=== PATIENT | female | born 1950 | race Caucasian/White ===

== ENCOUNTER → 2017-02-13 16:14 | Outpatient (CLI) | payer MEDICARE | END | disposition home or self-care (01) | LOC: D.MAMMO 11:00 | DX: Z12.31 Encounter for screening mammogram for malignant neoplasm of breast (principal) ==

== ENCOUNTER 2017-03-04 08:05 | Inpatient (IN) | payer MEDICARE ==
[~2017-03-04] VITALS: Ht 162.6 cm; Wt 144.7 kg
--- NOTE | ~2017-03-04 | HEMODYNAMI ---
PATIENT:LEONARD YATES MEDICAL RECORD: [id number] : 48 [id number] ADMISSION DATE: 03/04/17 Generatedon:03/06/201716:12 Patient name: LEONARD YATES Patient #: [id number] SSN: [id number] : 1950 Date of study: 03/06/2017 Page: Of Hemodynamic Procedure Report Patient Data Patient Demographics Procedure consent was obtained First Name: LEONARD Gender: Female Last Name: MILAN : 1950 Middle Initial: EVERETT Age: 66 year(s) Patient #: [id number] Race: SSN: [id number] Additional ID: [id number] Contact details [address]: [address] [place] [address] ROAD State: [place] City: [place] Zip code: [address] Admission Admission Data Admission Date: 03/04/2017 Admission Time: 10:10 Arrival Date: 03/04/2017 Arrival Time: 10:10 Admit Source: Other Insurance Payor: Medicare Room #: D.2232 Height (in.): 64 BSA: 2.42 (m2) Height (cm.): 162.56 BMI: 56.64 (kg/m2) Weight (lbs.): 330 Weight (kg.): 149.69 Lab Results Lab Result Date: 03/06/2017 Lab Result Time: 0:00 Biochemistry Name Units Result Min Max BUN mg/dl 30 --(----)-* 7 18 Creatinine mg/dl 1.5 --(----)-* 0.6 1.3 CBC Name Units Result Min Max Hemoglobin g/dl 12.8 -*(----)-- 13.5 17.5 Procedure Procedure Types Cath Procedure Diagnostic Procedure LHC LHC w/Coronaries Miscellaneous Procedures Moderate Sedation up to 30 minutes Procedure Description Procedure Date Procedure Date: 03/06/2017 Procedure Start Time: 16:00 Procedure End Time: 16:09 Procedure Staff Name Function Liam Ballard MD Performing Physician Clarice Quiros RN Nurse David Troncoso RT Monitor Haja Gee RT Scrub Renetta Baker RT Monitor Tabby Pereyra RT Monitor Elena Lawson RN Nurse Procedure Data Cath Procedure Fluoroscopy Diagnostic fluoroscopy Total fluoroscopy Time: 2 time: 2 min min Diagnostic fluoroscopy Total fluoroscopy dose: 744 dose: 744 mGy mGy Contrast Material Contrast Material Type Amount (ml) Isovue 370 96 Entry Location Entry Primary Successful Side Size Upsize Upsize Entry Closure Jackson ccessful Closure Location (Fr) 1 (Fr) 2 (Fr) Remarks Device Remarks Radial Right 6 Fr Mechanical artery Short Compression Estimated blood loss: 5 ml Diagnostic catheters Device Type Used For End Catheter Placement Terumo Optitorque 5Fr Multi-vessel Wyatt 4.5 catheter Angiography Diagnostic Infinity 5Fr Right Coronary AR 2 MOD catheter Angiography Procedure Complications No complications Procedure Medications Medication Administration Route Dosage Oxygen NC 2 l/min Heparin Flush Bag added to field 2 bags (1000units/500ml NS) Lidocaine 2% added to field 20 Radial Cocktail I.A. 1 syringe (Verapomil 2mg/Nitro 400mcg/Heparin 1500units) Versed I.V. 1 mg Fentanyl I.V. 50 mcg Versed I.V. 1 mg Fentanyl I.V. 50 mcg Versed I.V. 1 mg Fentanyl I.V. 50 mcg Hemodynamics Rest BSA: 2.42 (m2) HGB: 12.8 (g/dl) O2 Consumption: Estimated: 252.26 (ml/min) O2 Co nsumption indexed: Estimated:104.24 (ml/min/m) Heart Rate: 100 (bpm) Pressure Samples Time Site Value (mmHg) Purpose Heart Use Rate(bpm) 16:03 LV 116/-18,3 Snapshot 96 Snapshots Pre Cath Intra NCS Post Cath Vital Signs Time Heart Resp SPO2 NIBP (mmHg) Rhythm Pain Sedation Rate (ipm) (%) Status Level (bpm) 15:37:08 79 22 94 143/54(99) NSR 0 (11) 10(A) , No pain 15:41:49 91 22 93 145/75(113) NSR 0 (11) 10(A) , No pain 15:46:27 96 20 94 134/78(101) NSR 0 (11) 10(A) , No pain 15:51:08 78 15 94 118/62(85) NSR 0 (11) 10(A) , No pain 15:55:42 69 14 92 120/56(95) NSR 0 (11) 10(A) , No pain 16:00:21 82 16 93 120/51(98) NSR 0 (11) 10(A) , No pain 16:04:49 85 15 92 114/51(80) NSR 0 (11) 9(A) , No pain 16:09:15 91 15 94 110/59(88) NSR 0 (11) 10(A) , No pain Medications Time Medication Route Dose Verified Delivered Reason Notes Eff ectiveness by by 15:42:00 Oxygen NC 2 l/min Liam Clarice Per Nellie Quiros RN physician 15:42:08 Heparin Flush added 2 bags Liam Wheeler used for Bag to Nellie Ballard MD procedure (1000units/500ml field NS) 15:42:15 Lidocaine 2% added 20ml Liam Wheeler used for to vial Nellie Ballard MD procedure field 15:53:50 Versed I.V. 1 mg Liam Parker for Nellie Lawson RN sedation 15:53:55 Fentanyl I.V. 50 mcg Liam Parker for Nellie Lawson RN sedation 16:00:28 Versed I.V. 1 mg Liam Parker for Nellie Lawson RN sedation 16:00:32 Fentanyl I.V. 50 mcg Liam Parker for Nellie Lawson RN sedation 16:03:22 Radial Cocktail I.A. 1 Liam Wheeler used for (Verapomil syringe Nellie Ballard MD procedure 2mg/Nitro 400mcg/Heparin 1500units) 16:05:57 Versed I.V. 1 mg Liam Parker for Nellie Lawson RN sedation 16:06:01 Fentanyl I.V. 50 mcg Liam Parker for Nellie Lawson RN sedation Procedure Log Time Note 14:45:59 Haja Gee RT(R) sent for patient. Start room use. 14:55:00 Time tracking: Regular hours 14:55:04 Plan of Care:Hemodynamics will remain stable., Cardiac rhythm will remain stable., Comfort level will be maintained., Respiratory function will remain adequate., Patient/ family verbilizes understanding of procedure., Procedure tolerated without complication., Recovers from procedure without complications.. 15:15:02 Patient received from Med/Surg to CCL 2 Alert and oriented. Tansferred to table in Supine position. 15:35:12 Warm blankets applied, and wm hugger turned on for patient comfort. 15:35:12 Correct patient and procedure confirmed by team. 15:35:13 Signed procedure consent form obtained from patient. 15:35:14 ECG and BP/O2 sat monitors applied to patient. 15:35:14 Vital chart was started 15:35:23 Baseline sample Acquired. 15:35:28 Rhythm: sinus rhythm 15:35:29 Full Disclosure recording started 15:35:38 H&P Date Dictated: 03/05/2017 Within 30 days and on chart.. 15:35:41 Family in waiting room. 15:35:42 Patient NPO since Midnight. 15:35:43 Is the patient allergic to Iodine/contrast media? No. 15:37:01 IV Extension Set opened to sterile field. 15:37:08 Use device set Radial Dx 15:37:10 Tegaderm 4 x 4 opened to sterile field. 15:37:11 Acist Manifold opened to sterile field. 15:37:12 Acist Hand Control opened to sterile field. 15:37:13 Acist Syringe opened to sterile field. 15:37:13 Medline Cath Pack opened to sterile field. 15:37:14 Bag Decanter opened to sterile field. 15:37:14 Terumo 6Fr Slender Glidesheath opened to sterile field. 15:37:15 St Marcelino 260cm J .035 wire opened to sterile field. 15:37:15 MBrace Wrist Support opened to sterile field. 15:37:58 Patient not . Patient is over age 55. 15:38:27 Pre procedure: right dorsailis pedis pulse 1+ Palpable, but thready & weak; easily obliterated 15:38:29 Modified Segun's test Ulnar < 7 seconds 15:38:32 Patient pain scale 0/10 ?. 15:38:40 IV left hand D/C'd due to infiltration. 15:38:46 Lab results completed and on chart. 15:38:51 Pre-procedure instructions explained to patient. 15:38:51 Pre-op teaching completed and patient verbalized understanding. 15:42:00 Oxygen 2 l/min NC was administered by Clarice Quiros RN; Per physician; 15:42:08 Heparin Flush Bag (1000units/500ml NS) 2 bags added to field was administered by Liam Ballard MD; used for procedure; 15:42:15 Lidocaine 2% 20ml vial added to field was administered by Liam Ballard MD; used for procedure; 15:46:00 Is patient on blood thinner?No 15:46:01 Patient diabetic? No. 15:46:04 Previous problem with sedation/anesthesia? No ? 15:46:06 Snore? Yes 15:46:07 Sleep apnea? Yes 15:46:07 Deviated septum? No 15:46:08 Opens mouth fully? Yes 15:46:11 Sticks out tongue? Yes 15:46:13 Airway obstruction? No ? 15:46:15 Dentures? No ? 15:46:28 IV started by Clarice Quiros RN inRight upper arm with a 22 gauge IV catheter with 0.9% NaCl at KVO. 15:46:32 Right Radial & Right Groin area was prepped with chlora-prep and draped in sterile fashion 15:46:33 Alarms reviewed by R. N. 15:46:33 Sharps counted by scrub and verified by R.N. 15:50:44 Physician arrived 15:50:45 --------ALL STOP TIME OUT------ 15:50:45 Final Timeout: patient, procedure, and site verified with staff and physician. All members of the team are in agreement. 15:50:57 Right Radial & Right Groin site verified by team. 15:51:25 Physical assessment completed. ASA score P 2 - A patient with mild systemic disease as per Liam Ballard MD. 15:51:29 Sedation plan: IV Moderate Sedation Versed, Fentanyl 15:53:50 Versed 1 mg I.V. was administered by Elena Lawson RN; for sedation; 15:53:55 Fentanyl 50 mcg I.V. was administered by Elena Lawson RN; for sedation; 16:00:28 Versed 1 mg I.V. was administered by Elena Lawson RN; for sedation; 16:00:32 Fentanyl 50 mcg I.V. was administered by Elena Lawson RN; for sedation; 16:00:33 Procedure started. 16:00:47 Local anesthetic to right radial artery with Lidocaine 2% by Liam Ballard MD.INITIAL ACCESS ONLY 16:02:18 A 6 Fr Short sheath was inserted into the Right Radial artery 16:02:41 A Terumo Optitorque 5Fr Wyatt 4.5 catheter was advanced over the wire and used for Multi-vessel Angiography. 16:03:04 LV hemodynamics recorded. 16:03:06 LV gram done using DESIR 16:03:11 EF : 50 % 16:03:18 LCA angiography performed. 16:03:22 Radial Cocktail (Verapomil 2mg/Nitro 400mcg/Heparin 1500units) 1 syringe I.A. was administered by Liam Ballard MD; used for procedure; 16:03:36 Injector settings: Ml/sec: 3, Volume: 6, 16:05:04 Catheter removed. 16:05:44 A Diagnostic Infinity 5Fr AR 2 MOD catheter was advanced over the wire and used for Right Coronary Angiography. 16:05:57 Versed 1 mg I.V. was administered by Elena Lawson RN; for sedation; 16:06:01 Fentanyl 50 mcg I.V. was administered by Elena Lawson RN; for sedation; 16:06:17 RCA angiography performed. 16:06:20 Injector settings: Ml/sec: 3, Volume: 6, 16:06:33 Catheter removed. 16:07:07 Terumo TR Band Large opened to sterile field. 16:07:18 Sheath removed intact; hemostasis achieved with Mechanical Compression to the Right Radial artery. 16:07:19 Procedure ended.(Physican Out) 16:07:39 Fluoroscopy time 02.00 minutes. 16:07:48 Fluoroscopy dose: 744 mGy 16:07:48 Flurop Dose total: 744 16:07:52 Contrast amount:Isovue 370 96ml. 16:07:54 Sharps counted by scrub and verified by R.N. 16:07:57 TR band inflated with 10cc of air. 16:07:58 Insertion/operative site no bleeding no hematoma. 16:08:03 Post right radial artery:stable 16:08:04 Post Procedure Pulses reassessed and unchanged 16:08:07 Post procedure rhythm: unchanged. 16:08:10 Estimated blood loss: 5 ml 16:08:12 Post procedure instruction explained to patient.Patient verbalizes understanding. 16:08:12 Patient needs reinforcement of post procedure teaching. 16:08:25 Procedure type changed to Cath procedure, Diagnostic procedure, LHC, LHC w/Coronaries, Miscellaneous Procedures, Moderate Sedation up to 30 minutes 16:08:27 Procedure and supply charges have been captured, reviewed, submitted and are correct. 16:08:32 Procedure Complication : No complications 16:08:34 Vital chart was stopped 16:08:35 See physician's report for complete and final results. 16:08:59 Report given to [facility] II. 16:09:03 Patient transfered to Med II with Stretcher. 16:09:06 Procedure ended. 16:09:06 Full Disclosure recording stopped 16:09:09 End room use (Document Last) 16:10:11 Admit Source: Other 16:10:14 Arrival Date: 03/04/2017 10:10:00 AM 16:10:21 Insurance Payor : Medicare 16:10:58 Patient Height : 162.56 cm 16:11:13 Patient Weight : 149.69 kg 16:11:46 Lab Result : Hemoglobin 12.8 g/dl 16:11:46 Lab Result : Creatinine 1.5 mg/dl 16:11:46 Lab Result : BUN 30 mg/dl Device Usage Item Name Manufacture Quantity Catalog Hospital Part Current Minimal Lot# / Number Charge Number Stock Stock Serial# Code IV Hospira 1 21286-05 218792 69889 [id number] 5 Extension Set Tegaderm 4 3M 1 1626W [id number] 706172 504776 5 x 4 Acist Acist 1 54550 178435 148316 623147 5 Manifold Medical [employer] Inc Acist Hand Acist 1 50535 175109 881596 357062 5 Control Medical Systems Inc Acist Acist 1 53711 326210 837551 419709 20 Syringe Medical Systems Inc Medline Cardinal 1 [id number] 696342 79937 050988 5 Cath Pack Health Bag Microtek 1 2001S 751094 38378 716864 5 Decanter Medical Inc. Terumo 6Fr Terumo 1 [id number] 326294 194449 681357 [address] St Marcelino 1 066326 119003 463129 644894 30 260cm J .035 wire MBrace Advanced 1 [id number] 512390 60050 059935 5 Wrist Vascular Support Dynamics Terumo Terumo 1 40-2594 308726 536412 863497 5 Optitorque 5Fr Wyatt 4.5 catheter Diagnostic Cardinal 1 [id number] 988480 497061 152310 20 Infinity Health 5Fr AR 2 MOD catheter Terumo TR Terumo 1 [id number] 931337 521774 027150 40 Band Large Signature Audit Quebeck Stage Time Signature Unsigned Intra-Procedure 03/06/2017 Renetta Baker 4:11:59 PM RT(R) Signatures Monitor : David Troncoso RT Signature : Date : Time : Monitor : Renetta Baker RT Signature : Date : Time : Monitor : Tabby Pereyra Signature : RT Date : Time : [place] [address] [place] [address]
--- NOTE | ~2017-03-04 | EC ---
PATIENT:LEONARD YATES DATE OF SERVICE: 03/04/17 SEX: F MEDICAL RECORD: [id number] DATE OF : [birth year] LOCATION:D.MS [facility] AGE OF PATIENT: 66 ADMISSION DATE: 03/04/17 REFERRING PHYSICIAN: INTERPRETING PHYSICIAN: BRI MITCHELL M.D. ECHOCARDIOGRAM REPORT ECHO CHARGES 4 ECHO COMPLETE CLINICAL DIAGNOSIS: CHF ECHOCARDIOGRAPHIC MEASUREMENTS (adult normal given) AC root (d.<3.7cm) 3.6 LV Septum d (<1.2 cm> 1.5 Valve Excursion 1.7 LV Septum (systole) 2.0 Left Atria (s.<4.0cm> 5.0 LVPW d(<1.2cm) 1.5 RV (d.<2.3cm) 3.1 LVPW (sytole) 2.1 LV diastole(<5.6CM) 6.1 MV E-F(>70mm/sec) LV systole 3.6 LVOT Diameter 1.8 MV exc.(>10mm) Est.ejection fraction (50-75%) Pericardial Effusion N DOPPLER: LVIT A 74.0 E 108 LA RVSP 51.0 LVOT 137 AOP1/2T Asc. Ao 187 RVOT 82.0 RA PA 114 AV Gradient Peak 14.0 AV Mean 7.6 AV Area 2.0 MV Gradient Peak 6.4 MV Mean 2.2 MV Area COMMENTS: Cardiac Rehab Nurse: Rex EPPERSONOE Biztalk Architect:Mariana Mitchell TAPE# PACS DATE OF SERVICE: 03/04/2017 REFERRING PHYSICIAN: Morgan Hamilton DO. INDICATION: Congestive heart failure. DESCRIPTION: Left ventricle is mildly dilated. There is mild LV dysfunction noted. Estimated ejection fraction is in the order of 40%. Mitral valve is structurally normal. There is moderate regurgitation noted. Left atrium is moderately dilated. The aortic valve is trileaflet. There is no stenosis or ECHOCARDIOGRAM REPORT [id number] LEONARD YATES regurgitation seen. Right ventricle is mildly dilated. Tricuspid valve is structurally normal. There is moderate regurgitation seen. Right ventricular systolic pressure is elevated at 51 mmHg. There is no pericardial effusion seen. IMPRESSION: 1. Mildly dilated left ventricle with mild left ventricular dysfunction with ejection fraction of 40%. 2. Moderate mitral regurgitation. 3. Moderate tricuspid regurgitation with elevated pulmonary pressures. TRANSINT:[id number] Voice Confirmation ID: [id number] DOCUMENT ID: [id number] BRI MITCHELL M.D. CC: [id number] DICTATION DATE: 03/04/17 154 CREATIVE PRODUCER: 03/04/17 1556 ADM IN [facility] [address] [id number]
[2017-03-04 08:46] LABS: BASOPHILS 0.4 % (0-2); HEMATOCRIT 39.8 % (36.0-48.0); HEMOGLOBIN 12.5 g/dL (12-16); IMMATURE GRANULOCYTES 0.2 % (0-5); MCHC 31.4 g/dL (31.0-37.0); MCV 89.2 fL (80.0-100.0); MEAN PLATELET VOLUME 10.1 fL (7.4-10.4); MONOCYTES 6.6 % (2-11); NEUTROPHILS 85.8 % (40-80); PLATELET COUNT 208 10x3/uL (130-400); RBC 4.46 10x6/uL (4.00-5.40); RDW 14.6 % (11.5-14.5); WBC 12.4 10x3/uL (4.8-10.8)
[2017-03-04 08:58] LABS: ALBUMIN 3.4 g/dL (3.4-5.0); ANION GAP 11.6 mmol/L (8-16); BILIRUBIN - TOTAL 1.48 mg/dL (0.2-1.3); CALCIUM 8.9 mg/dL (8.5-10.1); CARBON DIOXIDE 26.6 mmol/L (21.0-32.0); CREATININE - SERUM 1.4 mg/dL (0.6-1.3); POTASSIUM - SERUM 4.2 mmol/L (3.5-5.1); PROTEIN - SERUM 7.3 g/dL (6.4-8.2)
[2017-03-04 11:00] VITALS: BP 114/63; BMI 10.6
--- NOTE | 2017-03-04 11:00 | NUR ---
RECEIVED PT FROM ER VIA WHEELCHAIR AT THIS TIME WITH FAMILY PRESENT. PT IS SOB ON 3L/NC AT THIS TIME. IV TO LEFT HAND PATENT AND INTACT AT THIS TIME. PT DENIES PAIN AT THIS TIME. SRX2 CALL LIGHT WITHIN REACH BED AT LOWEST SETTING WILL CONTINUE TO MONITOR
[2017-03-04] MEDS ORDERED: COREG25 MG PO (11:05)
[2017-03-04] MEDS ORDERED: DESERYL100 MG PO (11:05)
[2017-03-04] MEDS ORDERED: TIKOSYN250 MCG PO (11:06)
[2017-03-04] MEDS ORDERED: LISINOPRIL2.5 MG PO (11:06)
[2017-03-04] MEDS ORDERED: FUROSEMIDE20 MG PO (11:07)
[2017-03-04] MEDS ORDERED: ZOCOR40 MG PO (11:08)
[2017-03-04] MEDS ORDERED: CARTIA XT180 MG PO (11:08)
[2017-03-04] MEDS ORDERED: POTASSIUM CHLO10 ME1 PO (11:08)
[2017-03-04] MEDS ORDERED: LEVOTHYROXINE100 MCG PO (11:09)
[2017-03-04] MEDS ORDERED: CELEXA10 MG PO (11:09)
[2017-03-04] MEDS ORDERED: COUMADIN5 MG PO (11:09)
[2017-03-04] MEDS ORDERED: STOOL SOFTENER100 M1 PO (11:10)
[2017-03-04] MEDS ORDERED: COUMADIN2.5 MG PO (11:10)
[2017-03-04] MEDS ORDERED: PROBIOTIC1 EAC1 PO (11:11)
[2017-03-04 11:46] VITALS: BP 114/63
[2017-03-04 12:51] LABS: INR 2.46 (0.85-1.17); PROTIME 26.8 SECONDS (11.6-15.0)
--- NOTE | 2017-03-04 15:04 | NUR ---
DR BURLESON NOTIFIED OF PT IN RVR WITH HR 135-[address] BURLESON GIVEN TIKOSYN AND COREG PER PREVIOUS ORDER. AND MONITOR HR
[2017-03-04 15:37] VITALS: BP 142/65
[2017-03-04 19:00] VITALS: BP 158/57
[2017-03-04 21:02] LABS: CKMB 0.8 U/L (0.0-3.6); CREATINE KINASE 78 UL (21-215); TROPONIN-I 0.034 ng/mL (0.000-0.060)
[2017-03-05] VITALS (10 sets, daily range): BP systolic 105–169; BP diastolic 41–63; Ht 162.6 cm; Wt 144.7 kg
[2017-03-05 01:52] LABS: CKMB 0.5 U/L (0.0-3.6); CREATINE KINASE 77 UL (21-215); TROPONIN-I 0.018 ng/mL (0.000-0.060)
--- NOTE | 2017-03-05 02:15 | NUR ---
2024)REC'D. IN BED EYES CLOSED RESP. DEEP AND EVEN.WILL CONTINUE TO MONITOR FOR ANY CHGES AND FOLLOW CURRENT PLAN OF CARE.
--- NOTE | 2017-03-05 03:55 | NUR ---
RESTING WITH EYES CLOSED, NC IN PLACE, NO DISTRESS NOTED, SR'S UP, CL IN REACH
[2017-03-05 05:49] LABS: BASOPHILS 0.6 % (0-2); EOSINOPHILS 1.6 % (0-7); HEMATOCRIT 39.4 % (36.0-48.0); HEMOGLOBIN 12.3 g/dL (12-16); IMMATURE GRANULOCYTES 0.3 % (0-5); LYMPHOCYTES 21.1 % (15-50); MCH 27.8 pg (26.0-34.0); MCHC 31.2 g/dL (31.0-37.0); MCV 88.9 fL (80.0-100.0); MEAN PLATELET VOLUME 10.4 fL (7.4-10.4); MONOCYTES 14.2 % (2-11); NEUTROPHILS 62.2 % (40-80); PLATELET COUNT 218 10x3/uL (130-400); RBC 4.43 10x6/uL (4.00-5.40); RDW 14.5 % (11.5-14.5)
[2017-03-05 06:14] LABS: ALBUMIN 2.9 g/dL (3.4-5.0); ANION GAP 9.7 mmol/L (8-16); BILIRUBIN - TOTAL 1.57 mg/dL (0.2-1.3); CALCIUM 8.4 mg/dL (8.5-10.1); CARBON DIOXIDE 30.6 mmol/L (21.0-32.0); CREATININE - SERUM 1.4 mg/dL (0.6-1.3); PROTEIN - SERUM 6.7 g/dL (6.4-8.2)
[2017-03-05 06:16] LABS: POTASSIUM - SERUM 3.3 mmol/L (3.5-5.1)
--- NOTE | 2017-03-05 07:25 | NUR ---
SLEEPING AT THIS TIME WITH RESPIRATIONS EVEN AND NON LABORED. CALL LIGHT IN REACH, WILL CONTINUE WITH PLAN OF CARE.
[2017-03-05 07:34] LABS: CKMB 0.3 U/L (0.0-3.6); CREATINE KINASE 73 UL (21-215); TROPONIN-I 0.019 ng/mL (0.000-0.060)
--- NOTE | 2017-03-05 09:03 | NUR ---
SCHEDULED MEDICATIONS ADMINISTERED AT THIS TIME. LISINOPRIL HELD DUE TO DIASTOLIC PRESSURE BEING 43. TELEMETRY ON AND PT RUNNING 93 CONTROLLED A-FIB PER WASHING MACHINE LOADER. ASSESSMENT PERFORMED PER FLOWSHEET. PT AMBULATES AND POSITIONS INDEPENDENTLY. DENIES PAIN OR FURTHER NEEDS AT THIS TIME. BED IN LOWEST POSITION WITH SRX2 AND WHEELS LOCKED. CALL LIGHT IN REACH, WILL CONTINUE WITH PLAN OF CARE.
--- NOTE | 2017-03-05 10:30 | NUR ---
DISCONNECTED FROM IV AT THIS TIME FOR SHOWER. NOTIFIED NICHOLAS AT MONITOR STATION THAT PT WAS IN THE SHOWER.
--- NOTE | 2017-03-05 11:10 | NUR ---
SPOKE WITH RIGOBERTO PETERSON TECH AT THIS TIME. SHE STATED THAT PT'S CONDUCTION HAS CHANGED AND HAS A WIDENED QRS. RATE IS 63 CONTROLLED A-FIB. NOTIFIED АЛЕКСАНДР SALCIDO AND DR BROWNE. NEW ORDERS GIVEN AND EKG TO OBTAINED AND TO NOTIFY DR BURLESON.
--- NOTE | 2017-03-05 12:00 | NUR ---
DR BURLESON ON THE FLOOR. SHOWED HIM THE EKG AND RELAYED THE INFORMATION REGARDING CONDUCTION CHANGES AND HE STATED THAT SHE IS STABLE AND WE WILL CONTINUE TO MONITOR HER.
--- NOTE | 2017-03-05 12:25 | NUR ---
BLOOD CONSENT SIGNED FOR ORDERED PLASMA AT THIS TIME. DENIES QUESTIONS. SPOKE WITH DR BURLESON REGARDING PROCEDURE TOMORROW AND SHE DENIES QUESTIONS OR CONCERNS RELATED TO PROCEDURE.
--- NOTE | 2017-03-05 15:30 | NUR ---
FIRST OF TWO FFP INITIATED AFTER BEING WITNESSED AT THIS TIME. INITIATED AT 999 ML/HR AND REMAINING IN ROOM WITH PT FOR DURTAION OF TRANSFUSION. SEE VITAL SIGN FLOWSHEET.
--- NOTE | 2017-03-05 15:40 | NUR ---
VITAL SIGNS REMAIN STABLE AT THIS TIME. PT IS NOT EXPERIENCING ANY SHORTNESS OF BREATH OR DYSPNEA. REMAINING IN ROOM FOR TRANSFUSION.
--- NOTE | 2017-03-05 15:50 | NUR ---
TRANSFUSION OF FIRST FFP COMPLETE AT THIS TIME. VITAL SIGNS REMAIN STABLE. IV FLUSHED WITH 10ML OF SALINE FLUSH AND PT GIVEN 20MG OF LASIX IV AT THIS TIME PER ORDER. FLUSHED WITH 10 ML OF SALINE FLUSH. WILL ADMINISTER REMAINING 20 MG OF LASIX PER ORDER POST SECOND UNIT OF FFP COMPLETION. PT RESPIRATIONS REMAIN EVEN AND NON LABORED AND VITAL SIGNS STABLE.
--- NOTE | 2017-03-05 15:55 | NUR ---
SECOND UNIT OF FFP INITIATED AT THIS TIME. VITAL SIGNS REMAIN STABLE. SEE VITAL SIGN FLOW SHEET. REMAINING IN ROOM WITH PT.
--- NOTE | 2017-03-05 16:10 | NUR ---
VITAL SIGNS REMAIN STABLE. SECOND UNIT OF FFP INFUSING AT 750 ML/HR. ASSISTED PT UP TO BATHROOM WHERE SHE VOIDED WITHOUT DIFFICULTY. DISPLAYS NO S/S OF DYSPNEA OF SOB. REMAINING IN ROOM WITH PT FOR TRANSFUSION.
--- NOTE | 2017-03-05 16:15 | NUR ---
SECOND UNIT OF FFP COMPLETE AT THIS TIME. WILL CONTINUE TO MONITOR VITAL SIGNS. REMAINING 20 OF LASIX ADMINISTERED PER ORDER AT THIS TIME.
--- NOTE | 2017-03-05 17:04 | NUR ---
SCHEDULED COREG ADMINISTERED AT THIS TIME. BLOOD PRESSURE WNL AND HEART RATE 90 PER ADVOCACY DIRECTOR.
[2017-03-06 04:00] VITALS: BP 100/67
--- NOTE | 2017-03-06 06:16 | NUR ---
0100) 3RD UNIT PLASMA GIVEN WITHOUT DIFFICULTY RAMAKRISHNA. WELL.
--- NOTE | 2017-03-06 06:19 | NUR ---
DEVELOPMENT ENGINEER ASSISTING WITH BATH PRIOR TO PROCEDURE. REFUSES GROINS TO BE CLIPPED STATES SHE WAS TOLD PROCEDURE WOULD BE DONE THRU WRIST. ORDERS STATES GROIN.
[2017-03-06 06:23] LABS: BASOPHILS 0.6 % (0-2); EOSINOPHILS 2.6 % (0-7); HEMATOCRIT 40.3 % (36.0-48.0); HEMOGLOBIN 12.8 g/dL (12-16); IMMATURE GRANULOCYTES 0.3 % (0-5); LYMPHOCYTES 18.4 % (15-50); MCH 28.1 pg (26.0-34.0); MCHC 31.8 g/dL (31.0-37.0); MCV 88.4 fL (80.0-100.0); MEAN PLATELET VOLUME 10.5 fL (7.4-10.4); MONOCYTES 9.6 % (2-11); NEUTROPHILS 68.5 % (40-80); PLATELET COUNT 239 10x3/uL (130-400); RBC 4.56 10x6/uL (4.00-5.40); RDW 14.3 % (11.5-14.5); WBC 10.6 10x3/uL (4.8-10.8)
[2017-03-06 07:10] LABS: ALBUMIN 3.5 g/dL (3.4-5.0); ANION GAP 15.5 mmol/L (8-16); BILIRUBIN - TOTAL 1.6 mg/dL (0.2-1.3); CALCIUM 8.7 mg/dL (8.5-10.1); CARBON DIOXIDE 30.1 mmol/L (21.0-32.0); CREATININE - SERUM 1.5 mg/dL (0.6-1.3); INR 1.44 (0.85-1.17); PROTIME 17.4 SECONDS (11.6-15.0)
[2017-03-06 07:18] LABS: POTASSIUM - SERUM 3.6 mmol/L (3.5-5.1)
--- NOTE | 2017-03-06 07:56 | CN ---
PATIENT NAME:LEONARD YATES MEDICAL RECORD: [id number] : 48 LOCATION:D.MS [facility]32 ADMIT DATE: 03/04/17 ACCOUNT: [id number] CONSULTING PHYSICIAN: MARIA INES BURLESON MD REFERRING PHYSICIAN: QUITA BROWNE DO DATE OF CONSULTATION: 03/04/2017 Cardiology Consultation DIAGNOSES: 1. Shortness of breath, dyspnea on exertion. 2. Pulmonary edema. 3. Paroxysmal atrial fibrillation. 4. Aortic insufficiency -- valvular heart disease. 5. Hypertension. HISTORY OF PRESENT ILLNESS: Mrs. Yates presents with increasing shortness of breath, dyspnea on exertion. She does have pulmonary edema on her chest x-ray. She feels much better after 1 dose of IV Lasix. She has had a good urine output. She has been told in the past that she has congestive heart failure; however, recent echo showed ejection fraction 55%. No diastolic dysfunction and only mild aortic insufficiency, normal pulmonary pressures. With that, she would not have heart failure. She has not had any chest pain or chest discomfort. She does have a family history of coronary artery disease as well as hypertension and hyperlipidemia. She has not had workup for ischemic heart disease. PHYSICAL EXAMINATION: GENERAL APPEARANCE: Well-nourished, well-developed, appears stated age. Level of distress, comfortable. PSYCHIATRIC: Mental status, alert, normal affect. Orientation, oriented to time, place and person. EYES: Lids and conjunctiva, noninjected. No discharge, no pallor. ENT: Lips, teeth, gums, normal dentition. Oropharynx, no cyanosis, no pallor. NECK: Carotid arteries, bilateral normal upstroke, no bruits, no thrills. JUGULAR VEINS: No jugular venous pressure or distention. CERVICAL LYMPH NODES: Nontender, nonenlarged. THYROID: Not enlarged. Nontender. No nodules. LUNGS: Respiratory effort, unlabored. CHEST: Normal curvature. No thoracic deformity. No chest wall tenderness. Percussion, resonant. Auscultation, clear. No wheezes, no rales, no rhonchi. CARDIOVASCULAR: Precordial exam, nondisplaced. No heaves or pericardial thrills. Rate and rhythm, regular. Heart sounds, normal S1, normal S2. No S3, no gallop, no rub. Systolic murmur, not heard. Diastolic murmur, not heard. EXTREMITIES: No cyanosis, no edema. Peripheral pulses, full and equal in all extremities, except as noted. No bruits appreciated. ABDOMEN: Soft, nondistended. Normal aorta. No bruit. Nontender. No masses. Liver, nontender, no hepatomegaly. Spleen, nontender, no splenomegaly. MUSCULOSKELETAL: No joint tenderness. No joint swelling. No erythema. NEUROLOGICAL: Normal gait, normal strength, normal tone. SKIN: Warm and dry. REVIEW OF SYSTEMS: The patient reports easy bruising but reports no swollen glands. The patient reports no fever, no night sweats, no significant weight gain, no significant weight loss. No significant exercise tolerance. The CONSULT REPORT [id number] LEONARD YATES patient reports no dry eyes, no irritation, no vision change. Patient reports no difficulty hearing and no ear pain. Patient reports no frequent nose bleeds or nose and sinus problems. Patient reports on arm pain on exertion. No shortness of breath while lying down. No history of heart murmur. Patient reports no cough, no wheezing or coughing up blood. Patient reports no abdominal pain, no vomiting. Normal appetite. No diarrhea and not vomiting blood. No nausea and no constipation. Patient reports no incontinence. No difficulty urinating. No hematuria. No increased frequency. Patient reports no muscle aches. No weakness, no arthralgias, no back pain. No swelling of the extremities. Patient reports no abnormal mole, no jaundice, no rashes. Reports no loss of consciousness. No weakness and no numbness. No seizures, dizziness, or headaches. The patient reports no depression, no sleep disturbance, feeling safe in a relationship and no alcohol abuse. Patient reports on fatigue. Reports no runny nose or sinus pressure. No itching, no hives, and no frequent sneezing. OVERALL IMPRESSIONS: Pulmonary edema. Technically this is not heart failure with a normal ejection fraction, no significant valvular heart disease. It is unknown etiology, but she keeps having episodes of pulmonary edema and shortness of breath. This very well may be an anginal equivalent. She is on Coumadin. We will definitely hold her Coumadin at this point and get a PT and INR. She would benefit from cardiac catheterization in the near future. Further care depends upon findings of the catheterization. TRANSINT:[id number] Voice Confirmation ID: [id number] DOCUMENT ID: [id number] MARIA INES BURLESON MD at 0756 CC: [id number] DICTATION DATE: 03/04/17 1210 SLURRY BLENDER: 03/04/17 1626 ADM IN [facility] [address] [id number]
[2017-03-06 08:14] VITALS: BP 140/58
--- NOTE | 2017-03-06 10:09 | NUR ---
Contacted supervisor laboratory to inquire about administration of po medications prior to heart cath. Audie Dominique can go ahead and administer routine medications.
--- NOTE | 2017-03-06 10:26 | NUR ---
Received thi am alert and oriented times four, reports no pain. Telemetry in place CAF HR 74. O2 in place at 2lpm, respirations easy. No distress assessed. Educated on continuation nof NPO except ok for her to have medications per medical laboratory scientist. Procedure is still scheduled fortoday with unknown time, will call for pre op. Eduacted patient on this. Verbalized understanding. Call light within reach.
--- NOTE | 2017-03-06 10:37 | NUR ---
03/06/2017 10:31 DCP: Discharge Planning Patient Name: LEONARD YATES Admission Status: ER Accout number: [id number] Admission Date: 03-04-2017 : 1950 Admission Diagnosis:HEART FAILURE, UNSPECIFIED Attending: LESLYE Current LOS: 2 Anticipated DC Date: 03-08-2017 Planned Disposition: Home Primary Insurance: MEDICARE A & B Discharge Planning Comments: CM MET WITH PT TO ASSESS DISCHARGE PLANNING NEEDS. PT PLANS TO DISCHARGE TO HOME TO DAUGHTERS HOUSE URIEL JOHNSON ([phone]) WHO WILL DRIVE HER HOME. STATE HOME IS SAFE TO RETURN . PT USES CPAP MACHINE. ([place] PATIENT) HAS A WALKER, WHEELCHAIR, AND CANE. DENIES ANY HOME HEALTH NEEDS. WISAM RYAN USES THE [facility] ON [address], CM WILL CONTINUE TO FOLLOW AND ASSIST NEEDED WITH DISCHARGE PLANNING / NEEDS JIMMIE EVANGELISTA RN * Is the patient Alert and Oriented? Yes 0 * How many steps to enter\exit or inside your home? 0 0 * PCP [facility] 0 * Pharmacy [facility] ON [address] 0 * Preadmission Environment Home with Family 0 * ADLs Independent 0 * Equipment Cane CPAP Walker Wheelchair 0 * List name and contact numbers for known caregivers / representatives who currently or will assist patient after discharge: URIEL JOHNSON [phone] * Community resources currently utilized None 0 * Additional services required to return to the preadmission environment? No 0 * Can the patient safely return to the preadmission environment? Yes 0 * Has this patient been hospitalized within the prior 30 days at any hospital? No
[2017-03-06 11:50] VITALS: BP 132/50
--- NOTE | 2017-03-06 14:09 | NUR ---
Awake with no complaints, remains NPO, has not been for procedure yet. No distress assessed. Call light within reach.
--- NOTE | 2017-03-06 15:00 | NUR ---
RECEIVED CALL TO GO AHEAD AND PRE OP PATIENT
--- NOTE | 2017-03-06 15:04 | NUR ---
CURRENTLY GIVING PATIENT HER PRE OP, TRANSPORTATION HERE, STATES TO JUST HOLD OFF ON NITRO OINTMENT TO WRIST, PER RORY
--- NOTE | 2017-03-06 15:15 | NUR ---
transported to medical laboratory technician
--- NOTE | 2017-03-06 16:32 | NUR ---
RECIEVED FROM AIRFLIGHT ATTENDANTS SUPERVISOR. VS WNL. RIGHT WRIST STABLE WITH TR BAND INTACT. WILL MONITOR.
--- NOTE | 2017-03-06 19:58 | NUR ---
RESUMED CARE OF PT, LYING IN BED RESPIRATIONS EVEN AND UNLABORED ON 3LPM VIA NC. 75 CAF ON TELEMETRY. LEFT HAND INFUSING NS @ KVO. RIGHT WRIST TR BAND INFLATED. CALL LIGHT IN REACH. WILL CONTINUE TO MONITOR. SEE NURSE ASSESSMENT.
[2017-03-06 20:00] VITALS: BP 111/34
--- NOTE | 2017-03-06 20:09 | NUR ---
5CC REMOVED FROM TR BAND
[2017-03-07] VITALS: BP 135/55
[2017-03-07 04:00] VITALS: BP 128/56
[2017-03-07 05:45] LABS: BASOPHILS 0.5 % (0-2); HEMATOCRIT 39.9 % (36.0-48.0); HEMOGLOBIN 12.8 g/dL (12-16); IMMATURE GRANULOCYTES 0.3 % (0-5); LYMPHOCYTES 29.3 % (15-50); MCH 28.4 pg (26.0-34.0); MCHC 32.1 g/dL (31.0-37.0); MCV 88.7 fL (80.0-100.0); MONOCYTES 9.5 % (2-11); NEUTROPHILS 55.4 % (40-80); PLATELET COUNT 242 10x3/uL (130-400); RDW 14.3 % (11.5-14.5); WBC 9.4 10x3/uL (4.8-10.8)
[2017-03-07 06:09] LABS: ALBUMIN 3.2 g/dL (3.4-5.0); ANION GAP 11.6 mmol/L (8-16); BILIRUBIN - TOTAL 1.15 mg/dL (0.2-1.3); CALCIUM 8.8 mg/dL (8.5-10.1); CARBON DIOXIDE 30.8 mmol/L (21.0-32.0); CREATININE - SERUM 1.6 mg/dL (0.6-1.3); POTASSIUM - SERUM 3.4 mmol/L (3.5-5.1); PROTEIN - SERUM 7.2 g/dL (6.4-8.2)
[2017-03-07 08:45] VITALS: BP 130/34
--- NOTE | 2017-03-07 09:47 | NUR ---
TELEMETRY CAF.HR 67. CALL LIGHT IN REACH. WILL MONITOR NEEDS.
--- NOTE | 2017-03-07 10:47 | NUR ---
Patient Name: LEONARD YATES Encounter No: [id number] : 1950 Primary Insurance: MEDICARE A & B Anticipated DC Date: 03-07-2017 Planned Disposition: Home DCP follow-up note: CM MET WITH PT IN ROOM TO DISCUSS DISCHARGE NEEDS AND PLANNING. CM DISCUSSED AVAILABILITY OF HOME HEALTH, REHAB SERVICES AND MEDICAL EQUIPMENT. PT DENIES DISCHARGE NEEDS. DAUGHTER TO TRANSPORT HOME AT DISCHARGE TODAY. IMPORTANT MESSAGE FROM MEDICARE PROVIDED AND EXPLAINED. Uriel Mcnamara, CASE MANAGEMENT
[2017-03-07 11:57] VITALS: BP 110/47
--- NOTE | 2017-03-07 13:46 | NUR ---
IV AND TELEMETRY DCD. DC PLANS GIVEN. UNDERSTANDING VOICED.
--- NOTE | 2017-03-07 14:09 | NUR ---
ESCORTED TO CAR BY W/C.
--- NOTE | 2017-03-12 18:07 | DS ---
PATIENT:LEONARD YATES :[birth year] MEDICAL RECORD: [id number] DISCHARGE SUMMARY ADMISSION DATE: 03/04/17 DISCHARGE DATE: 03/07/17 DIAGNOSES: 1. Pulmonary edema secondary to atrial fibrillation. 2. Atrial fibrillation, paroxysmal. HISTORY OF PRESENT ILLNESS: Mrs. Yates has recurrent episodes of pulmonary edema. She does not have congestive heart failure. She has a normal left ventricular systolic function, no significant valvular disease, but she does have paroxysmal atrial fibrillation and that is what is putting her in to the pulmonary edema. She was seen previously by Dr. Alonzo. She was started on Tikosyn for this. She has not been on any other antiarrhythmics, we discontinued the Tikosyn, gave her rate control with Cardizem and carvedilol. We will let the Tikosyn get out of her system and see her back next week to institute antiarrhythmic therapy with sotalol. Also, make her appointment with Dr. Mcfadden in [place] to evaluate for atrial fibrillation ablation. TRANSINT:[id number] Voice Confirmation ID: [id number] DOCUMENT ID: [id number] MARIA INES BURLESON MD at 1807 CC: [id number] DICTATION DATE: 03/07/17 0846 BUFFET MANAGER: 03/08/17 0201 DIS IN 03/07/17 [id number] [place] [address]
--- NOTE | 2017-03-12 18:07 | OP ---
PATIENT NAME: LEONARD YATES MEDICAL RECORD: [id number] :[birth year] LOCATION:D.M2 D.2121 ADMISSION DATE:03/04/17 SURGEON: MARIA INES BURLESON MD DATE OF OPERATION: 03/06/2017 PROCEDURES: 1. Left heart catheterization. 2. Selective coronary angiography. 3. Left ventriculogram. INDICATIONS: Atrial fibrillation and angina. PROCEDURE IN DETAIL: After informed consent was obtained and after detailed explanation of risks, benefits, as well as alternative therapies, the patient elected to proceed with angiogram and heart catheterization. The right radial area was prepped and draped in normal sterile fashion. The right radial artery was cannulated via modified Seldinger technique with placement of 6-Comoran sheath. All catheters exchanged through this sheath. FINDINGS: The left ventriculogram was performed in standard 30-degree DESIR view reveals good cardiac wall motion throughout all segments. Overall ejection fraction is 60%. SELECTIVE CORONARY ANGIOGRAPHY: Left main, left anterior descending, left circumflex and right coronary artery are all Left main, left anterior descending, left circumflex, right coronary smooth-walled vessels with no angiographic evidence of coronary artery disease. OVERALL IMPRESSION: 1. No angiographic evidence of coronary artery disease. 2. Normal left heart pressures. 3. Normal left ventricular systolic function. Her symptomatology is secondary to the dysrhythmia. Center medical management on treatment of the dysrythmia. TRANSINT:[id number] Voice Confirmation ID: [id number] DOCUMENT ID: [id number] MARIA INES BURLESON MD at 1807 CC: [id number] DICTATION DATE: 03/06/17 1613 WATER TRUCK DRIVER: 03/06/17 2314 DIS IN 03/07/17 [facility] [address] [place] [address]
== END 2017-03-07 14:10 | disposition home or self-care (01) | DRG 287 ==
LOC: D.ER 08:05 → D.MS 10:10 → D.M2 03-06 16:27
PROVIDERS: Emergency Medicine; Internal Medicine Interventional Cardiology; ADMIT Family Medicine
PROC: B2151ZZ Fluoroscopy of Left Heart using Low Osmolar Contrast (ICD-10-PCS; 2017-03-06)
PROC: 4A023N7 Measurement of Cardiac Sampling and Pressure, Left Heart, Percutaneous Approach (ICD-10-PCS; 2017-03-06)
PROC: B2111ZZ Fluoroscopy of Multiple Coronary Arteries using Low Osmolar Contrast (ICD-10-PCS; principal; 2017-03-06 10:00)
DX: I48.0 Paroxysmal atrial fibrillation (principal); N17.9 Acute kidney failure, unspecified; I35.1 Nonrheumatic aortic (valve) insufficiency; F32.9 Major depressive disorder, single episode, unspecified; I10 Essential (primary) hypertension; Z79.01 Long term (current) use of anticoagulants; Z95.0 Presence of cardiac pacemaker; Z86.73 Personal history of transient ischemic attack (TIA), and cerebral infarction without residual deficits; Z82.49 Family history of ischemic heart disease and other diseases of the circulatory system

== ENCOUNTER 2018-11-17 08:00 | Outpatient (CLI) | payer MEDICARE ==
[2017-03-05 13:29] VITALS: BMI 56.6
[~2018-11-17 08:00] MED LIST: CARTIA XT180 MG PO; CELEXA10 MG PO; COREG25 MG PO; COUMADIN2.5 MG PO; COUMADIN5 MG PO; DESERYL100 MG PO; FUROSEMIDE20 MG PO; LEVOTHYROXINE100 MCG PO; LISINOPRIL2.5 MG PO; POTASSIUM CHLO10 ME1 PO; PROBIOTIC1 EAC1 PO; STOOL SOFTENER100 M1 PO; TIKOSYN250 MCG PO; ZOCOR40 MG PO
== END 2018-11-17 09:00 | disposition home or self-care (01) ==
LOC: D.MAMMO 08:00
DX: Z12.31 Encounter for screening mammogram for malignant neoplasm of breast (principal)

== ENCOUNTER → 2019-03-17 16:17 | Outpatient (CLI) | payer MEDICARE ==
[2017-03-05 13:29] VITALS: BMI 56.6
[~2019-03-17 16:17] MED LIST changes: +ALDACTONE25 MG PO; +INDOCIN25 MG PO
[2019-03-17 19:12] LABS: MACROPHAGES BF 2 %; MESOTHELIALS BF 1 %; NEUT - BF 93 %
== END | disposition home or self-care (01) ==
LOC: D.LABREF 16:17
PROVIDERS: ATTEND Orthopaedic Surgery
DX: L03.116 Cellulitis of left lower limb (principal)

== ENCOUNTER → 2019-03-17 16:31 | Outpatient (CLI) | payer MEDICARE ==
[2017-03-05 13:29] VITALS: BMI 56.6
== END | disposition home or self-care (01) ==
LOC: D.US 16:30
PROVIDERS: ATTEND Orthopaedic Surgery
DX: R60.0 Localized edema (principal)

== ENCOUNTER 2019-03-21 13:23 | Emergency (ER) | payer MEDICARE ==
[~2019-03-21 13:23] MED LIST changes: -ALDACTONE25 MG PO; -INDOCIN25 MG PO
[2019-03-21 13:35] VITALS: BMI 55.0
[2019-03-21] MEDS ORDERED: INDOCIN25 MG PO (13:38)
[2019-03-21] MEDS ORDERED: ALDACTONE25 MG PO (13:39)
[2019-03-21 14:32] LABS: BASOPHILS 0.4 % (0-2); EOSINOPHILS 1.3 % (0-7); HEMATOCRIT 28.3 % (36.0-48.0); IMMATURE GRANULOCYTES 2.8 % (0-5); MCH 27.6 pg (26.0-34.0); MCHC 31.8 g/dL (31.0-37.0); MCV 86.8 fL (80.0-100.0); MEAN PLATELET VOLUME 8.8 fL (7.4-10.4); MONOCYTES 7.2 % (2-11); NEUTROPHILS 80.3 % (40-80); RBC 3.26 10x6/uL (4.00-5.40); RDW 15.1 % (11.5-14.5); WBC 15.9 10x3/uL (4.8-10.8)
[2019-03-21 14:33] LABS: PLATELET COUNT 417 10x3/uL (130-400)
[2019-03-21 14:46] LABS: ALBUMIN 2.9 g/dL (3.4-5.0); ALKALINE PHOSPHATASE 147 U/L (46-116); ALT (SGPT) 24 U/L (10-68); BILIRUBIN - TOTAL 1.72 mg/dL (0.2-1.3); CALC OSMOLALITY 302 mosm/kg (275-300); CHLORIDE - SERUM 106 mmol/L (98-107); CREATININE - SERUM 1.7 mg/dL (0.6-1.3); GLUCOSE 130 mg/dL (74-106); POTASSIUM - SERUM 5.4 mmol/L (3.5-5.1); PROTEIN - SERUM 7.4 g/dL (6.4-8.2); SODIUM 139 mmol/L (136-145); UREA NITROGEN 77 mg/dL (7-18); eGFR NON AFRICAN AMERICAN 32 mL/min (90-120)
[2019-03-21 14:47] LABS: AMYLASE - SERUM 29 U/L (25-115); LIPASE 168 U/L (73-393); TROPONIN-I < 0.017 ng/mL (0.000-0.060)
[2019-03-21 15:32] LABS: APPEARANCE CLEAR (CLEAR); BILIRUBIN NEGATIVE (NEGATIVE); COLOR STRAW (YELLOW); GLUCOSE NEGATIVE (NEGATIVE); KETONE NEGATIVE (NEGATIVE); NITRITE NEGATIVE (NEGATIVE); PROTEIN NEGATIVE (NEGATIVE); UROBILINOGEN NORMAL (NORMAL)
[2019-03-21 15:58] LABS: INR 4.5 (0.85-1.17); PROTIME 41.9 SECONDS (11.6-15.0)
[2019-03-21 15:59] LABS: APTT 99.7 SECONDS (22.8-39.4)
[2019-03-21 20:24] LABS: BASOPHILS 0.4 % (0-2); EOSINOPHILS 1.3 % (0-7); HEMOGLOBIN 9.1 g/dL (12-16); IMMATURE GRANULOCYTES 2.8 % (0-5); LYMPHOCYTES 9.8 % (15-50); MCH 27.5 pg (26.0-34.0); MCHC 31.4 g/dL (31.0-37.0); MCV 87.6 fL (80.0-100.0); MEAN PLATELET VOLUME 8.8 fL (7.4-10.4); MONOCYTES 10.4 % (2-11); NEUTROPHILS 75.3 % (40-80); PLATELET COUNT 440 10x3/uL (130-400); RBC 3.31 10x6/uL (4.00-5.40); RDW 15.3 % (11.5-14.5); WBC 16.6 10x3/uL (4.8-10.8)
[2019-03-21 22:10] VITALS: BP 136/55
== END 2019-03-21 22:00 | disposition other institution (70) ==
LOC: D.ER 13:23
PROVIDERS: Family Medicine
DX: D64.9 Anemia, unspecified (principal); I48.91 Unspecified atrial fibrillation; Z79.01 Long term (current) use of anticoagulants; N28.9 Disorder of kidney and ureter, unspecified; K92.2 Gastrointestinal hemorrhage, unspecified

== ENCOUNTER → 2019-03-26 12:29 | Outpatient (CLI) | payer MEDICARE ==
[2019-03-21 13:35] VITALS: BMI 55.0
--- NOTE | ~2019-03-26 | HEMODYNAMI ---
PATIENT:LEONARD YATES MEDICAL RECORD: [id number] : [birth year] LOCATION:[facility] ADMISSION DATE: 03/26/19 Generatedon:03/26/201914:11 Patient name: LEONARD YATES Patient #: [id number] SSN: [id number] : 1950 Date of study: 03/26/2019 Page: Of Hemodynamic Procedure Report Patient Data Patient Demographics Procedure consent was obtained First Name: LEONARD Gender: Female Last Name: MILAN : 1950 Middle Initial: [place] Age: 68 year(s) Patient #: [id number] Race: SSN: [id number] Additional ID: [id number] Contact details [address]: [address] [place] [address] ROAD State: [place] City: [place] Zip code: [address] Past Medical History Allergies: No known allergies Admission Admission Data Admission Date: 03/26/2019 Admission Time: 12:29 Procedure Procedure Types Cath Procedure Peripheral Cath Diagnostic Procedure Miscellaneous Aspiration/Injection (Joint) Procedure Description Procedure Date Procedure Date: 03/26/2019 Procedure Start Time: 13:41 Procedure Staff Name Function Radha Munoz MD Performing Physician Rosa Isela RDZ Scrub Hemodynamics Rest Pre Cath Intra NCS Post Cath Procedure Log Time Note 13:36:17 Rosa Isela RDZ(R) sent for patient. Start room use. 13:36:18 Time tracking: Regular hours (M-F 7:00 - 5:00) 13:36:29 Patient received from Outpatients to IR Alert and oriented. Tansferred to table in Supine position. 13:36:32 Correct patient and procedure confirmed by team. 13:36:40 Signed procedure consent form obtained from patient. 13:36:42 - 13:36:46 Pre-procedure instructions explained to patient. 13:36:47 Pre-op teaching completed and patient verbalized understanding. 13:37:00 Patient allergic to No known allergies 13:37:10 Is patient on blood thinner?Yes 13:37:46 Left Knee was prepped with betadine and draped in sterile fashion. 13:38:58 Physician arrived 13:40:09 --------ALL STOP TIME OUT------ 13:41:46 Procedure started. 13:41:46 Full Disclosure recording started 13:55:39 fluid drawn from left knee and sent to lab for testing 13:55:45 Procedure ended.(Physican Out) 13:56:14 SAFE-T PLUS MYELOGRAM TRAY opened to sterile field. Device Usage Item Name Manufacture Quantity Catalog Hospital Part Current Minimal Lot# / Number Charge Number Stock Stock Serial# Code SAFE-T [employer] 1 [id number] PLUS MYELOGRAM TRAY Signature Audit [place] Stage Time Signature Unsigned Intra-Procedure 03/26/2019 Rosa Isela Duncan 2:11:37 PM RT(R) [facility] [address] [place] [address]
[~2019-03-26 12:29] MED LIST changes: +ALDACTONE25 MG PO; +INDOCIN25 MG PO
[2019-03-26 16:27] LABS: NEUT - BF 97 %
== END | disposition home or self-care (01) ==
LOC: D.SP 12:29 → D.RAD 13:00 → D.SP 13:00
PROVIDERS: ATTEND Student in an Organized Health Care Education/Training Program
DX: M25.462 Effusion, left knee (principal); M25.562 Pain in left knee

== ENCOUNTER → 2019-03-26 16:39 | Outpatient (CLI) | payer MEDICARE ==
[2019-03-21 13:35] VITALS: BMI 55.0
[2019-03-26 17:03] LABS: BASOPHILS 0.4 % (0-2); EOSINOPHILS 1.5 % (0-7); HEMATOCRIT 28.8 % (36.0-48.0); IMMATURE GRANULOCYTES 1.2 % (0-5); LYMPHOCYTES 7.6 % (15-50); MCHC 31.3 g/dL (31.0-37.0); MCV 89.4 fL (80.0-100.0); MEAN PLATELET VOLUME 8.9 fL (7.4-10.4); MONOCYTES 7.9 % (2-11); NEUTROPHILS 81.4 % (40-80); PLATELET COUNT 453 10x3/uL (130-400); RBC 3.22 10x6/uL (4.00-5.40); RDW 16.8 % (11.5-14.5); WBC 18.7 10x3/uL (4.8-10.8)
== END | disposition home or self-care (01) ==
LOC: D.LABREF 16:39
PROVIDERS: ATTEND Nurse Practitioner Adult Health
DX: I48.91 Unspecified atrial fibrillation (principal)